=== PATIENT | female | born 1995 ===

== ENCOUNTER 2022-07-14 10:50 | Outpatient (CLI) | payer OTHER | END 2022-07-14 13:51 | disposition home or self-care (01) | LOC: PRENATAL 10:50 | PROVIDERS: ATTEND Obstetrics & Gynecology Maternal & Fetal Medicine | DX: O36.80X0 Pregnancy with inconclusive fetal viability, not applicable or unspecified (principal); Z14.8 Genetic carrier of other disease; Z3A.14 14 weeks gestation of pregnancy ==

== ENCOUNTER 2022-08-21 11:09 | Outpatient (CLI) | payer OTHER | END 2022-08-21 13:15 | disposition home or self-care (01) | LOC: PRENATAL 11:09 | PROVIDERS: ATTEND Obstetrics & Gynecology Maternal & Fetal Medicine | DX: O35.9XX0 Maternal care for (suspected) fetal abnormality and damage, unspecified, not applicable or unspecified (principal); O35.3XX0 Maternal care for (suspected) damage to fetus from viral disease in mother, not applicable or unspecified; Z14.8 Genetic carrier of other disease; Z3A.20 20 weeks gestation of pregnancy ==

== ENCOUNTER 2022-12-14 14:43 | Outpatient (CLI) | payer OTHER | END 2022-12-14 17:31 | disposition home or self-care (01) | LOC: PRENATAL 14:43 | PROVIDERS: ATTEND Obstetrics & Gynecology Maternal & Fetal Medicine | DX: O26.849 Uterine size-date discrepancy, unspecified trimester (principal); O36.8199 Decreased fetal movements, unspecified trimester, other fetus; O28.1 Abnormal biochemical finding on antenatal screening of mother; O24.419 Gestational diabetes mellitus in pregnancy, unspecified control; Z3A.36 36 weeks gestation of pregnancy ==